=== PATIENT | female | born 1995 | race Caucasian/White ===

== ENCOUNTER 2017-02-28 08:54 | Emergency (ER) | payer OTHER ==
[2017-02-28 09:32] LABS: HEMOGLOBIN 9.1 gm/dl (12.3-15.3)
== END 2017-02-28 11:20 | disposition home or self-care (01) ==
LOC: ER1 08:54
PROVIDERS: Physician Assistant
DX: N93.8 Other specified abnormal uterine and vaginal bleeding (principal); D64.9 Anemia, unspecified; F17.210 Nicotine dependence, cigarettes, uncomplicated
CPT/HCPCS: 36415; 85014; 85018; 99284